=== PATIENT | male | born 1980 | race Caucasian/White ===

== ENCOUNTER 2017-10-06 15:44 | Inpatient (IN) | payer OTHER ==
[~2017-10-06] VITALS: Ht 182.9 cm; Wt 89.3 kg
[2017-10-06 16:16] LABS: ALANINE AMINOTRANSFERASE 46 U/L (12-78); ALBUMIN 3.8 g/dL (3.4-5.0); ANION GAP 11 mmol/L (5-15); CHLORIDE 112 mmol/L (98-107); CREATININE 1.14 mg/dL (0.7-1.3)
[2017-10-06 16:20] LABS: ALKALINE PHOSPHATASE 164 U/L (45-117); BILIRUBIN,TOTAL 0.5 mg/dL (0.2-1.0); TOTAL PROTEIN 7.8 g/dL (6.4-8.2)
[2017-10-06 16:24] LABS: BASOPHILS # (AUTO) 0.04 x10^3/uL (0-0.1); BASOPHILS % (AUTO) 1 % (0-1); EOSINOPHILS # (AUTO) 0.05 x10^3/uL (0-0.4); EOSINOPHILS % (AUTO) 1 % (1-7); LYMPHOCYTES # (AUTO) 1.16 x10^3/uL (1-3.4); LYMPHOCYTES % (AUTO) 18 % (22-44); MD NO; MEAN CORPUSCULAR HEMOGLOBIN 30.7 pg (27.5-34.5); MEAN CORPUSCULAR HGB CONC 33.5 g/dL (33.2-36.2); MEAN CORPUSCULAR VOLUME 91.5 fL (81-97); MEAN PLATELET VOLUME 8.3 fL (7.4-10.4); MONOCYTES # (AUTO) 0.52 x10^3/uL (0.2-0.8); MONOCYTES % (AUTO) 8 % (2-9); NEUTROPHILS # (AUTO) 4.58 x10^3/uL (1.8-6.8); NEUTROPHILS % (AUTO) 72 % (42-75); PLATELET COUNT 324 x10^3/uL (130-400); RED BLOOD COUNT 4.74 x10^6/uL (4.38-5.82); RED CELL DISTRIBUTION WIDTH 17.7 % (9.4-14.8)
[2017-10-06] MEDS ORDERED: THIAMINE 100MG TABLET ONE (18:12)
[2017-10-06] MEDS ORDERED: ONDANSETRON ODT 4 MG ONE (18:13)
[2017-10-06] MEDS ORDERED: LORazepam 2 MG/ML, 1ML ONE ×2 (18:13→19:05)
[2017-10-06] MEDS: LORazepam 2 MG/ML, 1ML IVPush PRN ×3 (18:25→20:14)
[2017-10-06] MEDS ORDERED: THIAMINE 100MG TABLET PO ONE (18:30)
[2017-10-06] MEDS ORDERED: SODIUM CHLORIDE FLUSH 10ML SYR IVF ONE (18:30)
[2017-10-06] MEDS ORDERED: SODIUM CHLORIDE 0.9% 1,000ML IVBOLUS ONE (18:30)
[2017-10-06] MEDS ORDERED: ONDANSETRON ODT 4 MG PO ONE (18:30)
[2017-10-06 18:36] LABS: ALANINE AMINOTRANSFERASE 47 U/L (12-78); ALBUMIN 3.7 g/dL (3.4-5.0); ANION GAP 12 mmol/L (5-15); BASOPHILS # (AUTO) 0.03 x10^3/uL (0-0.1); BASOPHILS % (AUTO) 1 % (0-1); CHLORIDE 115 mmol/L (98-107); EOSINOPHILS # (AUTO) 0.04 x10^3/uL (0-0.4); EOSINOPHILS % (AUTO) 1 % (1-7); LYMPHOCYTES # (AUTO) 1.44 x10^3/uL (1-3.4); LYMPHOCYTES % (AUTO) 22 % (22-44); MD NO; MEAN CORPUSCULAR HEMOGLOBIN 31.3 pg (27.5-34.5); MEAN CORPUSCULAR HGB CONC 33.8 g/dL (33.2-36.2); MEAN CORPUSCULAR VOLUME 92.5 fL (81-97); MEAN PLATELET VOLUME 8.2 fL (7.4-10.4); MONOCYTES # (AUTO) 0.42 x10^3/uL (0.2-0.8); MONOCYTES % (AUTO) 7 % (2-9); NEUTROPHILS # (AUTO) 4.56 x10^3/uL (1.8-6.8); NEUTROPHILS % (AUTO) 70 % (42-75); PLATELET COUNT 323 x10^3/uL (130-400); RED BLOOD COUNT 4.66 x10^6/uL (4.38-5.82); RED CELL DISTRIBUTION WIDTH 17.8 % (9.4-14.8)
[2017-10-06 18:38] LABS: ALKALINE PHOSPHATASE 160 U/L (45-117); BILIRUBIN,TOTAL 0.4 mg/dL (0.2-1.0); CREATININE 1.14 mg/dL (0.7-1.3); TOTAL PROTEIN 7.5 g/dL (6.4-8.2)
[2017-10-06] MEDS ORDERED: PROMETHAZINE 25 MG/ML, 1ML IM PRN (20:00)
[2017-10-06] MEDS ORDERED: PROMETHAZINE 12.5 MG SUPP PR PRN (20:00)
[2017-10-06] MEDS ORDERED: ONDANSETRON 2MG/ML, 2ML IVPush PRN (20:00)
[2017-10-06] MEDS ORDERED: ONDANSETRON ODT 4 MG PO PRN (20:00)
[2017-10-06] MEDS: D5%-0.9% NACL+KCL 20MEQ 1,000 ML IV SCH (20:00)
[2017-10-06] MEDS ORDERED: LORazepam 2 MG/ML, 1ML IV PRN ×2 (20:00)
[2017-10-06] MEDS ORDERED: ALUMINUM/MAG/SIMETHICONE 30 ML UDC PO PRN (20:00)
[2017-10-06] MEDS ORDERED: DIPHENHYDRAMINE 50 MG/ML, 1ML IV PRN (20:00)
[2017-10-06] MEDS ORDERED: hydrALAzine 20 MG/ML, 1ML IVPush PRN (20:00)
[2017-10-06] MEDS ORDERED: ACETAMINOPHEN 650 MG SUPP PR PRN (20:00)
[2017-10-06 21:00] VITALS: BP 138/87
[2017-10-06] MEDS: POTASSIUM CHLORIDE 20 MEQ, MAGNESIUM SULFATE 2 GM, THIAMINE 100 MG, MVI ADULT 10 ML, FO... IV SCH (22:09)
[2017-10-06] MEDS: ENOXAPARIN 40 MG/0.4 ML SQ SCH (22:09)
[2017-10-07] MEDS: LORazepam 2 MG/ML, 1ML IV PRN ×8 (00:10→16:22)
[2017-10-07] MEDS: D5%-0.9% NACL+KCL 20MEQ 1,000 ML IV SCH ×6 (02:13→22:00)
[2017-10-07 02:21] VITALS: BP 137/94
[2017-10-07 06:25] LABS: ALANINE AMINOTRANSFERASE 42 U/L (12-78); ALBUMIN 3.4 g/dL (3.4-5.0); ANION GAP 6 mmol/L (5-15); CALCIUM 7.9 mg/dL (8.5-10.1); CHLORIDE 113 mmol/L (98-107)
[2017-10-07 06:28] LABS: ALKALINE PHOSPHATASE 145 U/L (45-117); BILIRUBIN,TOTAL 0.5 mg/dL (0.2-1.0); CREATININE 0.82 mg/dL (0.7-1.3); TOTAL PROTEIN 6.9 g/dL (6.4-8.2)
[2017-10-07 06:29] LABS: MEAN CORPUSCULAR HEMOGLOBIN 31.2 pg (27.5-34.5); MEAN CORPUSCULAR HGB CONC 33.9 g/dL (33.2-36.2); MEAN CORPUSCULAR VOLUME 91.8 fL (81-97); MEAN PLATELET VOLUME 8.4 fL (7.4-10.4); PLATELET COUNT 252 x10^3/uL (130-400); RED CELL DISTRIBUTION WIDTH 17.5 % (9.4-14.8)
[2017-10-07 06:40] VITALS: BP 153/91
[2017-10-07 06:55] LABS: BASOPHILS # (AUTO) 0.06 x10^3/uL (0-0.1); BASOPHILS % (AUTO) 1 % (0-1); EOSINOPHILS # (AUTO) 0.05 x10^3/uL (0-0.4); EOSINOPHILS % (AUTO) 1 % (1-7); LYMPHOCYTES # (AUTO) 0.75 x10^3/uL (1-3.4); LYMPHOCYTES % (AUTO) 14 % (22-44); MD SCAN; MONOCYTES # (AUTO) 0.15 x10^3/uL (0.2-0.8); MONOCYTES % (AUTO) 3 % (2-9); NEUTROPHILS # (AUTO) 4.55 x10^3/uL (1.8-6.8); NEUTROPHILS % (AUTO) 82 % (42-75)
[2017-10-07] MEDS: NEUTRA PHOS K 250 MG TABLET PO SCH ×3 (08:46→21:25)
[2017-10-07] MEDS ORDERED: FAMOTIDINE 20 MG TABLET PO SCH (09:00)
[2017-10-07] MEDS ORDERED: GABA300C10 PO (09:35)
[2017-10-07] MEDS ORDERED: OMEP40CA6 PO (09:35)
[2017-10-07] MEDS ORDERED: VENL75CA6 PO (09:35)
[2017-10-07] MEDS ORDERED: PROP20TA PO (09:35)
[2017-10-07] MEDS ORDERED: THIA100T10 PO (09:35)
[2017-10-07] MEDS ORDERED: AMLO5TAB2 PO (09:35)
[2017-10-07] MEDS ORDERED: MULT1TAB61 PO (09:35)
[2017-10-07] MEDS ORDERED: FOLI-17 PO (09:35)
[2017-10-07] MEDS ORDERED: MIRT15TA4 PO (09:35)
[2017-10-07 13:42] VITALS: BP 133/84
[2017-10-07] MEDS: GABAPENTIN 300 MG CAPSULE PO SCH ×2 (16:22→21:25)
[2017-10-07 19:46] VITALS: BP 135/90
[2017-10-07] MEDS: POTASSIUM CHLORIDE 20 MEQ, MAGNESIUM SULFATE 2 GM, THIAMINE 100 MG, MVI ADULT 10 ML, FO... IV SCH (21:25)
[2017-10-07] MEDS: ENOXAPARIN 40 MG/0.4 ML SQ SCH (21:25)
[2017-10-07] MEDS: MIRTAZAPINE 15 MG TABLET PO SCH (21:25)
[2017-10-08 01:05] VITALS: BP 132/85
[2017-10-08] MEDS: D5%-0.9% NACL+KCL 20MEQ 1,000 ML IV SCH ×6 (02:03→22:00)
[2017-10-08 05:40] LABS: ALANINE AMINOTRANSFERASE 32 U/L (12-78); ALBUMIN 2.9 g/dL (3.4-5.0); ANION GAP 6 mmol/L (5-15); CALCIUM 7.9 mg/dL (8.5-10.1); CHLORIDE 111 mmol/L (98-107); CREATININE 0.96 mg/dL (0.7-1.3)
[2017-10-08 05:42] LABS: ALKALINE PHOSPHATASE 126 U/L (45-117); BILIRUBIN,TOTAL 0.8 mg/dL (0.2-1.0); TOTAL PROTEIN 6.4 g/dL (6.4-8.2)
[2017-10-08] MEDS: LORazepam 2 MG/ML, 1ML IV PRN ×6 (06:07→22:13)
[2017-10-08] MEDS: ACETAMINOPHEN 325 MG TABLET PO PRN (06:10)
[2017-10-08 06:50] VITALS: BP 160/108
[2017-10-08 07:20] VITALS: BP 155/99
[2017-10-08] MEDS: FOLIC ACID 1 MG TABLET PO SCH (08:20)
[2017-10-08] MEDS: GABAPENTIN 300 MG CAPSULE PO SCH ×3 (08:21→21:27)
[2017-10-08] MEDS: AMLODIPINE 5 MG TABLET PO SCH (08:21)
[2017-10-08] MEDS: VENLAFAXINE 75 MG CAP ER PO SCH (08:21)
[2017-10-08] MEDS: NEUTRA PHOS K 250 MG TABLET PO SCH ×3 (08:21→21:26)
[2017-10-08] MEDS: OMEPRAZOLE 20 MG CAPSULE.DR PO SCH (08:21)
[2017-10-08] MEDS: MULTIVITAMINS/MINERALS TABLET PO SCH (08:21)
[2017-10-08 14:15] VITALS: BP 150/95
[2017-10-08 18:59] VITALS: BP 145/98
[2017-10-08] MEDS: ENOXAPARIN 40 MG/0.4 ML SQ SCH (21:27)
[2017-10-08] MEDS: MIRTAZAPINE 15 MG TABLET PO SCH (21:27)
[2017-10-08] MEDS: POTASSIUM CHLORIDE 20 MEQ, MAGNESIUM SULFATE 2 GM, THIAMINE 100 MG, MVI ADULT 10 ML, FO... IV SCH (23:23)
[2017-10-09 00:38] VITALS: BP 141/94
[2017-10-09] MEDS: D5%-0.9% NACL+KCL 20MEQ 1,000 ML IV SCH ×5 (02:00→21:35)
[2017-10-09 05:41] LABS: CHLORIDE 111 mmol/L (98-107)
[2017-10-09 05:50] LABS: ALANINE AMINOTRANSFERASE 30 U/L (12-78); ALKALINE PHOSPHATASE 122 U/L (45-117); ANION GAP 7 mmol/L (5-15); BILIRUBIN,TOTAL 0.8 mg/dL (0.2-1.0); CALCIUM 8.1 mg/dL (8.5-10.1); CREATININE 0.93 mg/dL (0.7-1.3); GAMMA GLUTAMYL TRANSPEPTIDASE 128 U/L (15-85); TOTAL PROTEIN 6.8 g/dL (6.4-8.2)
[2017-10-09 07:27] VITALS: BP 138/84
[2017-10-09] MEDS: VENLAFAXINE 75 MG CAP ER PO SCH (08:20)
[2017-10-09] MEDS: GABAPENTIN 300 MG CAPSULE PO SCH ×3 (08:20→20:05)
[2017-10-09] MEDS: MULTIVITAMINS/MINERALS TABLET PO SCH (08:20)
[2017-10-09] MEDS: OMEPRAZOLE 20 MG CAPSULE.DR PO SCH (08:20)
[2017-10-09] MEDS: AMLODIPINE 5 MG TABLET PO SCH (08:21)
[2017-10-09] MEDS: FOLIC ACID 1 MG TABLET PO SCH (08:21)
[2017-10-09] MEDS: NEUTRA PHOS K 250 MG TABLET PO SCH ×3 (08:21→20:05)
[2017-10-09] MEDS: LORazepam 2 MG/ML, 1ML IV PRN ×4 (08:26→16:58)
[2017-10-09 14:06] VITALS: BP 137/92
[2017-10-09 17:24] LABS: CLOSTRIDIUM DIFFICILE ANTIGEN NEGATIVE; CLOSTRIDIUM DIFFICILE TOXIN NEGATIVE (Negative)
[2017-10-09] MEDS: DIPHENOXYLATE/ATROPINE TABLET PO PRN (17:59)
[2017-10-09] MEDS: ACETAMINOPHEN 325 MG TABLET PO PRN (18:02)
[2017-10-09 19:13] VITALS: BP 148/72
[2017-10-09] MEDS: MIRTAZAPINE 15 MG TABLET PO SCH (20:05)
[2017-10-09] MEDS: ENOXAPARIN 40 MG/0.4 ML SQ SCH (20:06)
[2017-10-09] MEDS: POTASSIUM CHLORIDE 20 MEQ, MAGNESIUM SULFATE 2 GM, THIAMINE 100 MG, MVI ADULT 10 ML, FO... IV SCH (23:23)
[2017-10-10 00:16] VITALS: BP 124/75
[2017-10-10] MEDS: LORazepam 2 MG/ML, 1ML IV PRN (03:04)
[2017-10-10] MEDS: ACETAMINOPHEN 325 MG TABLET PO PRN ×2 (03:08→17:02)
[2017-10-10] MEDS: D5%-0.9% NACL+KCL 20MEQ 1,000 ML IV SCH ×2 (06:03→08:52)
[2017-10-10 06:17] LABS: BASOPHILS # (AUTO) 0.04 x10^3/uL (0-0.1); BASOPHILS % (AUTO) 1 % (0-1); EOSINOPHILS # (AUTO) 0.07 x10^3/uL (0-0.4); EOSINOPHILS % (AUTO) 2 % (1-7); LYMPHOCYTES # (AUTO) 0.59 x10^3/uL (1-3.4); LYMPHOCYTES % (AUTO) 15 % (22-44); MD NO; MEAN CORPUSCULAR HEMOGLOBIN 31.2 pg (27.5-34.5); MEAN CORPUSCULAR HGB CONC 33.6 g/dL (33.2-36.2); MEAN CORPUSCULAR VOLUME 92.9 fL (81-97); MEAN PLATELET VOLUME 8.8 fL (7.4-10.4); MONOCYTES # (AUTO) 0.34 x10^3/uL (0.2-0.8); MONOCYTES % (AUTO) 9 % (2-9); NEUTROPHILS # (AUTO) 2.86 x10^3/uL (1.8-6.8); NEUTROPHILS % (AUTO) 73 % (42-75); PLATELET COUNT 188 x10^3/uL (130-400); RED BLOOD COUNT 4.42 x10^6/uL (4.38-5.82); RED CELL DISTRIBUTION WIDTH 16.8 % (9.4-14.8)
[2017-10-10 06:20] LABS: INTERNATIONAL NORMALIZED RATIO 1.04 (0.93-1.1); PROTHROMBIN TIME 10.7 Seconds (9.6-11.5)
[2017-10-10 06:27] LABS: CHLORIDE 108 mmol/L (98-107)
[2017-10-10 06:34] LABS: ALANINE AMINOTRANSFERASE 32 U/L (12-78); ALKALINE PHOSPHATASE 119 U/L (45-117); ANION GAP 6 mmol/L (5-15); BILIRUBIN,TOTAL 0.8 mg/dL (0.2-1.0); CALCIUM 7.9 mg/dL (8.5-10.1); CREATININE 0.91 mg/dL (0.7-1.3); TOTAL PROTEIN 6.9 g/dL (6.4-8.2)
[2017-10-10 07:35] VITALS: BP 133/82
[2017-10-10] MEDS ORDERED: LORazepam 1MG TABLET PO PRN ×3 (08:00)
[2017-10-10 08:50] VITALS: BP 158/97
[2017-10-10] MEDS: GABAPENTIN 300 MG CAPSULE PO SCH ×3 (08:51→21:31)
[2017-10-10] MEDS: OMEPRAZOLE 20 MG CAPSULE.DR PO SCH (08:51)
[2017-10-10] MEDS: MULTIVITAMINS/MINERALS TABLET PO SCH (08:51)
[2017-10-10] MEDS: VENLAFAXINE 75 MG CAP ER PO SCH (08:51)
[2017-10-10] MEDS: NEUTRA PHOS K 250 MG TABLET PO SCH ×3 (08:51→21:31)
[2017-10-10] MEDS: FOLIC ACID 1 MG TABLET PO SCH (08:51)
[2017-10-10] MEDS: AMLODIPINE 5 MG TABLET PO SCH (08:51)
[2017-10-10] MEDS: LORazepam 0.5MG TABLET PO PRN ×2 (08:52→16:58)
[2017-10-10] MEDS: DIPHENOXYLATE/ATROPINE TABLET PO PRN ×2 (08:58→16:58)
[2017-10-10] MEDS: LORazepam 1MG TABLET PO PRN ×2 (11:36→21:31)
[2017-10-10 12:54] VITALS: BP 142/91
[2017-10-10 18:51] VITALS: BP 149/97
[2017-10-10] MEDS: MIRTAZAPINE 15 MG TABLET PO SCH (21:31)
[2017-10-10] MEDS: ENOXAPARIN 40 MG/0.4 ML SQ SCH (21:31)
[2017-10-11] MEDS: POTASSIUM CHLORIDE 20 MEQ, MAGNESIUM SULFATE 2 GM, THIAMINE 100 MG, MVI ADULT 10 ML, FO... IV SCH (00:09)
[2017-10-11 02:44] VITALS: BP 130/85
[2017-10-11 06:02] LABS: CHLORIDE 107 mmol/L (98-107)
[2017-10-11 06:06] LABS: HCT (SEDRATE) 41.9 % (39.2-51.8)
[2017-10-11 06:09] LABS: BASOPHILS # (AUTO) 0.04 x10^3/uL (0-0.1); BASOPHILS % (AUTO) 1 % (0-1); EOSINOPHILS # (AUTO) 0.15 x10^3/uL (0-0.4); EOSINOPHILS % (AUTO) 5 % (1-7); LYMPHOCYTES # (AUTO) 1.09 x10^3/uL (1-3.4); LYMPHOCYTES % (AUTO) 37 % (22-44); MD NO; MEAN CORPUSCULAR HEMOGLOBIN 31.4 pg (27.5-34.5); MEAN CORPUSCULAR HGB CONC 34.1 g/dL (33.2-36.2); MEAN CORPUSCULAR VOLUME 92.1 fL (81-97); MEAN PLATELET VOLUME 8.8 fL (7.4-10.4); MONOCYTES % (AUTO) 13 % (2-9); NEUTROPHILS % (AUTO) 44 % (42-75); PLATELET COUNT 204 x10^3/uL (130-400); RED BLOOD COUNT 4.51 x10^6/uL (4.38-5.82); RED CELL DISTRIBUTION WIDTH 16.6 % (9.4-14.8)
[2017-10-11 06:10] LABS: ALANINE AMINOTRANSFERASE 32 U/L (12-78); ALBUMIN 3.1 g/dL (3.4-5.0); ALKALINE PHOSPHATASE 119 U/L (45-117); ANION GAP 8 mmol/L (5-15); BILIRUBIN, DIRECT 0.1 mg/dL (0.1-0.2); BILIRUBIN,INDIRECT 0.4 mg/dL (0.0-2.0); BILIRUBIN,TOTAL 0.5 mg/dL (0.2-1.0); CALCIUM 8.6 mg/dL (8.5-10.1); CREATININE 0.93 mg/dL (0.7-1.3); TOTAL PROTEIN 7.5 g/dL (6.4-8.2)
[2017-10-11 07:29] VITALS: BP 128/90
[2017-10-11] MEDS: OMEPRAZOLE 20 MG CAPSULE.DR PO SCH (09:29)
[2017-10-11] MEDS: GABAPENTIN 300 MG CAPSULE PO SCH (09:29)
[2017-10-11] MEDS: FOLIC ACID 1 MG TABLET PO SCH (09:29)
[2017-10-11] MEDS: NEUTRA PHOS K 250 MG TABLET PO SCH (09:29)
[2017-10-11] MEDS: AMLODIPINE 5 MG TABLET PO SCH (09:30)
[2017-10-11] MEDS: VENLAFAXINE 75 MG CAP ER PO SCH (09:30)
[2017-10-11] MEDS: MULTIVITAMINS/MINERALS TABLET PO SCH (09:30)
[2017-10-11 09:56] LABS: BASOPHILS # (AUTO) 0.03 x10^3/uL (0-0.1); BASOPHILS % (AUTO) 1 % (0-1); EOSINOPHILS # (AUTO) 0.09 x10^3/uL (0-0.4); EOSINOPHILS % (AUTO) 2 % (1-7); LYMPHOCYTES # (AUTO) 1.05 x10^3/uL (1-3.4); LYMPHOCYTES % (AUTO) 26 % (22-44); MD NO; MEAN CORPUSCULAR HEMOGLOBIN 31.1 pg (27.5-34.5); MEAN CORPUSCULAR HGB CONC 33.7 g/dL (33.2-36.2); MEAN CORPUSCULAR VOLUME 92.5 fL (81-97); MEAN PLATELET VOLUME 8.7 fL (7.4-10.4); MONOCYTES # (AUTO) 0.54 x10^3/uL (0.2-0.8); MONOCYTES % (AUTO) 14 % (2-9); NEUTROPHILS # (AUTO) 2.31 x10^3/uL (1.8-6.8); NEUTROPHILS % (AUTO) 57 % (42-75); PLATELET COUNT 231 x10^3/uL (130-400); RED BLOOD COUNT 4.85 x10^6/uL (4.38-5.82); RED CELL DISTRIBUTION WIDTH 16.7 % (9.4-14.8)
== END 2017-10-11 09:50 | disposition left against medical advice (07) | DRG 641 ==
LOC: ED 18:55 → EDIP 18:57 → 4EST 19:44
PROVIDERS: ADMIT Hospitalist; ATTEND Hospitalist
DX: E87.0 Hyperosmolality and hypernatremia (principal); F10.239 Alcohol dependence with withdrawal, unspecified; R44.0 Auditory hallucinations; K29.20 Alcoholic gastritis without bleeding; F31.9 Bipolar disorder, unspecified; I10 Essential (primary) hypertension; I48.91 Unspecified atrial fibrillation; R44.1 Visual hallucinations; R45.4 Irritability and anger; R74.8 Abnormal levels of other serum enzymes; F10.229 Alcohol dependence with intoxication, unspecified; Z71.41 Alcohol abuse counseling and surveillance of alcoholic
CPT/HCPCS: 36415; 99285; J7042; 76700; 80048; 80053; 80076; 80307; 82977; 83690; 83735; 84100; 85025; 85610; 85651; 87324; 93005; J1650; J3411; J3475; J3480; Q0162; J2060; J7030

== ENCOUNTER 2018-06-30 15:42 | Inpatient (IN) | payer MEDICAID ==
[~2018-06-30] VITALS: Ht 179.1 cm; Wt 90.0 kg
[~2018-06-30 15:42] MED LIST: AMLO-150 PO; FOLI-17 PO; GABA300C10 PO; MIRT15TA4 PO; MULT1TAB61 PO; OMEP40CA6 PO; PROP20TA PO; THIA100T10 PO; VENL75CA6 PO
[2018-06-30 18:00] VITALS: BP 145/98
[2018-06-30] MEDS ORDERED: ACETAMINOPHEN 325 MG TABLET PO PRN (19:30)
[2018-06-30] MEDS ORDERED: VANCOMYCIN PER PHARMACY MC PRN (19:30)
[2018-06-30] MEDS ORDERED: BISACODYL 10 MG SUPP PR PRN (19:30)
[2018-06-30] MEDS ORDERED: POLYETHYLENE GLYCOL 17 GM PACKET PO PRN (19:30)
[2018-06-30] MEDS: HEPARIN 5,000 UNITS/ML, 1ML SQ SCH (19:30)
[2018-06-30] MEDS ORDERED: ONDANSETRON 2MG/ML, 2ML IVPush PRN (19:30)
[2018-06-30 19:35] VITALS: BP 143/97
[2018-06-30] MEDS ORDERED: PHARMACOKINETIC MONITORING MC PRN (20:00)
[2018-06-30] MEDS ORDERED: PLEASE ENTER HEIGHT AND WEIGHT MC SCH (20:00)
[2018-06-30] MEDS ORDERED: PHARMACOKINETIC CONSULTATION MC ONE (20:00)
[2018-06-30 20:34] LABS: BASOPHILS # (AUTO) 0.03 x10^3/uL (0-0.1); BASOPHILS % (AUTO) 1 % (0-1); EOSINOPHILS # (AUTO) 0.19 x10^3/uL (0-0.4); EOSINOPHILS % (AUTO) 4 % (1-7); INTERNATIONAL NORMALIZED RATIO 0.96 (0.93-1.1); LYMPHOCYTES # (AUTO) 0.95 x10^3/uL (1-3.4); LYMPHOCYTES % (AUTO) 18 % (22-44); MD NO; MEAN CORPUSCULAR HEMOGLOBIN 27.1 pg (27.5-34.5); MEAN CORPUSCULAR HGB CONC 33.1 g/dL (33.2-36.2); MEAN CORPUSCULAR VOLUME 81.8 fL (81-97); MEAN PLATELET VOLUME 9.2 fL (7.4-10.4); MONOCYTES # (AUTO) 0.37 x10^3/uL (0.2-0.8); MONOCYTES % (AUTO) 7 % (2-9); NEUTROPHILS # (AUTO) 3.84 x10^3/uL (1.8-6.8); NEUTROPHILS % (AUTO) 71 % (42-75); PLATELET COUNT 202 x10^3/uL (130-400); PROTHROMBIN TIME 10.1 Seconds (9.6-11.5); RED BLOOD COUNT 3.84 x10^6/uL (4.38-5.82); RED CELL DISTRIBUTION WIDTH 17.5 % (9.4-14.8)
[2018-06-30 20:35] LABS: ALANINE AMINOTRANSFERASE 26 U/L (12-78); ALBUMIN 2.8 g/dL (3.4-5.0); ANION GAP 6 mmol/L (5-15); CALCIUM 8.3 mg/dL (8.5-10.1); CHLORIDE 110 mmol/L (98-107)
[2018-06-30 20:38] LABS: ALKALINE PHOSPHATASE 119 U/L (45-117); BILIRUBIN,TOTAL 0.6 mg/dL (0.2-1.0); CREATININE 0.71 mg/dL (0.7-1.3); TOTAL PROTEIN 6.8 g/dL (6.4-8.2)
[2018-06-30] MEDS ORDERED: MIRTAZAPINE 15 MG TABLET PO SCH (21:00)
[2018-06-30] MEDS ORDERED: VANCOMYCIN 2,000 MG in SODIUM CHLORIDE 0.9% 500 ML IV ONE (21:00)
[2018-06-30] MEDS ORDERED: QUETIAPINE 100MG TABLET PO SCH (21:00)
[2018-06-30] MEDS: PIPERACILLIN/TAZO/PMX 3.375GM 50 ML IV SCH (21:02)
[2018-06-30] MEDS: KETOROLAC 30 MG/1 ML IV PRN (21:03)
[2018-06-30] MEDS: morphine SULFATE 10 MG/ML, 1ML IVPush PRN ×2 (21:03→23:53)
[2018-06-30] MEDS: LORazepam 2 MG/ML, 1ML IVPush PRN (21:03)
[2018-06-30] MEDS: GABAPENTIN 300 MG CAPSULE PO SCH (21:03)
[2018-06-30] MEDS: THIAMINE 100MG TABLET PO SCH (21:03)
[2018-07-01 01:17] VITALS: BP 139/98
[2018-07-01] MEDS: LORazepam 2 MG/ML, 1ML IVPush PRN ×4 (01:44→14:10)
[2018-07-01] MEDS: PIPERACILLIN/TAZO/PMX 3.375GM 50 ML IV SCH ×3 (02:55→15:00)
[2018-07-01] MEDS: morphine SULFATE 10 MG/ML, 1ML IVPush PRN ×3 (03:12→11:17)
[2018-07-01] MEDS: HEPARIN 5,000 UNITS/ML, 1ML SQ SCH ×2 (03:30→11:30)
[2018-07-01 04:58] LABS: CLOSTRIDIUM DIFFICILE ANTIGEN NEGATIVE; CLOSTRIDIUM DIFFICILE TOXIN NEGATIVE (Negative)
[2018-07-01 05:36] LABS: ALBUMIN 2.6 g/dL (3.4-5.0); ANION GAP 8 mmol/L (5-15); CALCIUM 8.2 mg/dL (8.5-10.1); CHLORIDE 111 mmol/L (98-107)
[2018-07-01 05:38] LABS: ALANINE AMINOTRANSFERASE 23 U/L (12-78); ALKALINE PHOSPHATASE 108 U/L (45-117); BILIRUBIN,TOTAL 0.7 mg/dL (0.2-1.0); CREATININE 0.86 mg/dL (0.7-1.3); TOTAL PROTEIN 6.4 g/dL (6.4-8.2)
[2018-07-01 05:39] LABS: BASOPHILS # (AUTO) 0.04 x10^3/uL (0-0.1); BASOPHILS % (AUTO) 1 % (0-1); EOSINOPHILS # (AUTO) 0.27 x10^3/uL (0-0.4); EOSINOPHILS % (AUTO) 6 % (1-7); LYMPHOCYTES # (AUTO) 0.89 x10^3/uL (1-3.4); LYMPHOCYTES % (AUTO) 19 % (22-44); MD NO; MEAN CORPUSCULAR HEMOGLOBIN 27.3 pg (27.5-34.5); MEAN CORPUSCULAR HGB CONC 33.2 g/dL (33.2-36.2); MEAN CORPUSCULAR VOLUME 82.2 fL (81-97); MEAN PLATELET VOLUME 8.9 fL (7.4-10.4); MONOCYTES # (AUTO) 0.41 x10^3/uL (0.2-0.8); MONOCYTES % (AUTO) 9 % (2-9); NEUTROPHILS # (AUTO) 3.19 x10^3/uL (1.8-6.8); NEUTROPHILS % (AUTO) 67 % (42-75); PLATELET COUNT 169 x10^3/uL (130-400); RED BLOOD COUNT 3.74 x10^6/uL (4.38-5.82); RED CELL DISTRIBUTION WIDTH 17.5 % (9.4-14.8)
[2018-07-01] MEDS: KETOROLAC 30 MG/1 ML IV PRN (05:53)
[2018-07-01] MEDS ORDERED: VANCOMYCIN 2,000 MG in SODIUM CHLORIDE 0.9% 500 ML IV SCH (06:00)
[2018-07-01 06:55] VITALS: BP 127/82
[2018-07-01] MEDS ORDERED: PANTOPROZOLE 40MG TABLET PO SCH (09:00)
[2018-07-01] MEDS: THIAMINE 100MG TABLET PO SCH (09:00)
[2018-07-01] MEDS ORDERED: VENLAFAXINE 75 MG CAP ER PO SCH (09:00)
[2018-07-01] MEDS ORDERED: MULTIVITAMINS/MINERALS TABLET PO SCH (09:00)
[2018-07-01] MEDS: GABAPENTIN 300 MG CAPSULE PO SCH (09:00)
[2018-07-01] MEDS ORDERED: FOLIC ACID 1 MG TABLET PO SCH (09:00)
[2018-07-01] MEDS ORDERED: SENNA/DOCUSATE TABLET PO SCH (09:00)
[2018-07-01] MEDS ORDERED: AMLODIPINE 5 MG TABLET PO SCH (09:00)
[2018-07-01 13:32] VITALS: BP 135/86
== END 2018-07-01 17:50 | disposition short-term general hospital (02) | DRG 548 ==
LOC: 4NOR 18:10
PROVIDERS: ADMIT Internal Medicine; ATTEND Internal Medicine
DX: M00.9 Pyogenic arthritis, unspecified (principal); E43 Unspecified severe protein-calorie malnutrition; F10.239 Alcohol dependence with withdrawal, unspecified; F32.9 Major depressive disorder, single episode, unspecified; D64.9 Anemia, unspecified; E87.6 Hypokalemia; F41.9 Anxiety disorder, unspecified; I10 Essential (primary) hypertension; K21.9 Gastro-esophageal reflux disease without esophagitis; Z79.899 Other long term (current) drug therapy; Z68.28 Body mass index [BMI] 28.0-28.9, adult
CPT/HCPCS: 36415; 80053; 85025; 85610; 85651; 85730; 86141; 87040; 87324; G0378; J1885; J2543; J3370; J2060; J2270; J7040